=== PATIENT | male | born 1990 | race Caucasian/White ===

== ENCOUNTER 2024-01-24 23:43 | Emergency (ER) | payer BC ==
[~2024-01-24] VITALS: Ht 180.3 cm; Wt 82.5 kg
[2024-01-24 23:46] VITALS: BP 136/73; TEMP 98.2; O2SAT 98
[2024-01-24 23:49] VITALS: PULSE 71; O2SAT 98
[2024-01-25] MEDS: MAGNESIUM/ALUMINUM HYDROXIDE/SIMETHICONE 30ML UDC PO STA (01:13)
[2024-01-25] MEDS: ONDANSETRON 4MG ODT PO STA (01:14)
[2024-01-25 01:35] LABS: BASOPHILS % 0.5 % (0.0-2.0); EOSINOPHILS % 5.4 % (0.0-5.0); HEMATOCRIT. 42.8 % (42.0-52.0); HEMOGLOBIN. 14.3 g/dL (14.0-18.0); LYMPHOCYTES % 8.6 % (20.0-50.0); MEAN CORPUSCULAR HEMOGLOBIN 29.6 pg (28.0-32.0); MEAN CORPUSCULAR HGB CONC 33.3 g/dL (31.0-37.0); MEAN CORPUSCULAR VOLUME 88.8 fL (80.0-94.0); MEAN PLATELET VOLUME 8.2 fl (7.4-10.4); MONOCYTES % 6.5 % (2.0-8.0); PLATELET 304 x1000/uL (130-400); RED BLOOD CELL COUNT 4.82 mill/uL (4.7-6.1); RED CELL DISTRIBUTION WIDTH 13.8 % (11.6-14.6); WHITE BLOOD COUNT 10.7 x1000/uL (4.5-11.0)
[2024-01-25 01:38] LABS: CHLORIDE 106 mEq/L (98-107); POTASSIUM 3.7 mEq/L (3.5-5.1); SODIUM 140 mEq/L (136-145)
[2024-01-25 01:39] LABS: CARBON DIOXIDE 27 mEq/L (21-32)
[2024-01-25 01:40] LABS: CALCIUM 9.9 mg/dL (8.7-10.4)
[2024-01-25 01:44] LABS: CREATININE 1.1 mg/dL (0.6-1.3); GLUCOSE 108 mg/dL (70-105)
[2024-01-25 01:45] LABS: UREA NITROGEN BLOOD 14 mg/dL (9-23)
[2024-01-25 01:46] LABS: ALANINE AMINOTRANSFERASE 34 IU/L (10-49); ALBUMIN 4.6 g/dL (3.2-4.8); ASPARTATE AMINOTRANSFERASE 24 IU/L (<34); BILIRUBIN DIRECT 0.1 mg/dL (<=3.0)
[2024-01-25 01:47] LABS: BILIRUBIN TOTAL 0.4 mg/dL (0.1-1.0); PROTEIN TOTAL 7.5 g/dL (6.0-8.3)
[2024-01-25 03:48] LABS: CLARITY URINE CLEAR (CLEAR); COLOR URINE YELLOW (YELLOW); GLUCOSE URINE NEGATIVE (NEGATIVE); KETONES URINE NEGATIVE (NEGATIVE); LEUKOCYTE ESTERASE URINE NEGATIVE (NEGATIVE); NITRITE URINE NEGATIVE (NEGATIVE); OCCULT BLOOD URINE NEGATIVE (NEGATIVE); PH URINE 5.5 (4.5-8.0); PROTEIN URINE NEGATIVE (NEGATIVE); SPECIFIC GRAVITY URINE 1.023 (1.005-1.030)
[2024-01-25] MEDS ORDERED: ONDA4TAB50 MT (04:14)
[2024-01-25] MEDS ORDERED: PROT20 MT (04:14)
== END 2024-01-25 04:41 | disposition home or self-care (01) ==
LOC: ER 23:43
DX: K29.70 Gastritis, unspecified, without bleeding (principal); R10.13 Epigastric pain
CPT/HCPCS: 99283; 80076; 80048; 81003; 83690; 85025; 36415; Q0162